=== PATIENT | female | born 1960 | race Caucasian/White ===

== ENCOUNTER 2019-04-11 12:51 | Emergency (ER) | payer OTHER ==
[~2019-04-11] VITALS: Ht 162.6 cm; Wt 88.5 kg
[2019-04-11 14:35] VITALS: BP 117/64
== END 2019-04-11 15:58 | disposition home or self-care (01) ==
LOC: EDBD 12:51 → ER 12:55
DX: S80.02XA Contusion of left knee, initial encounter (principal); V49.9XXA Car occupant (driver) (passenger) injured in unspecified traffic accident, initial encounter; Y93.89 Activity, other specified; Y99.8 Other external cause status; Y92.89 Other specified places as the place of occurrence of the external cause
CPT/HCPCS: 73562